=== PATIENT | male | born 1940 | race Caucasian/White ===

== ENCOUNTER → 2023-11-29 14:30 | Outpatient (REF) | payer MEDICARE, BC, SELFPAY ==
[2023-11-29 15:25] LABS: Blood Urea Nitrogen 18 mg/dl (9-20)
[2023-11-29 15:43] LABS: Free T4 0.61 ng/dl (0.78-2.19)
[2023-11-29 15:57] LABS: TSH 3.95 uIU/ml (0.47-4.68)
[2023-11-30 15:23] LABS: Lyme Antibody Screen, EIA Presump. Positive (Negative)
== END ==
LOC: REG 14:30
PROVIDERS: ATTENDING PHYSICIAN Physician Assistant; FAMILY PHYSICIAN Family Medicine
DX: H90.A21 Sensorineural hearing loss, unilateral, right ear, with restricted hearing on the contralateral side (principal); R20.0 Anesthesia of skin
CPT/HCPCS: 36415; 82565; 84439; 84443; 84520; 86617; 86618

== ENCOUNTER → 2023-11-30 11:31 | Outpatient (REF) | payer MEDICARE, BC, SELFPAY ==
[2023-11-30 12:15] LABS: % Basophils 0.7 % (0-2); % Immature Granulocytes 0.2 % (0-0.5); % Lymphocytes 25.2 % (20.5-51.1); % Monocytes 11.2 % (1.7-9.3); % Neutrophils 58.7 % (42.2-75.2); Absolute Basophils 0.1 10^3/uL (0-0.2); Absolute Eosinophils 0.3 10^3/uL (0-0.7); Absolute Lymphocytes 2.1 10^3/uL (1.2-3.4); Absolute Monocytes 0.9 10^3/uL (0.1-0.6); Absolute Neutrophils 4.8 10^3/uL (1.4-6.5); Hematocrit 44.7 % (39.0-52.0); Mean Corp Hgb Conc. 35.8 g/dL (33.0-37.0); Mean Corpuscular Hgb 34.3 pg (27.0-31.0); Mean Corpuscular Volume 95.7 fL (80.0-94.0); Mean Platelet Volume 11.1 fL (7.4-10.4); Nucleated Red Blood Cells % 0 % (-); Platelet Count 212 10^3/uL (130-400); Red Blood Cell Count 4.67 10^6/uL (4.70-6.10); White Blood Cell Count 8.2 10^3/uL (4.8-10.8)
== END ==
LOC: REG 11:31
PROVIDERS: ATTENDING PHYSICIAN Physician Assistant
DX: H90.A21 Sensorineural hearing loss, unilateral, right ear, with restricted hearing on the contralateral side (principal)
CPT/HCPCS: 36415; 85025